=== PATIENT | female | born 1975 | race Caucasian/White ===

== ENCOUNTER 2023-04-02 01:24 | Day surgery (SDC) | payer OTHER, SELFPAY ==
[2023-03-23 11:55] VITALS: BMI 36.9
[2023-04-02 07:30] VITALS: BP 138/88; PULSE 107; RESP 18; TEMP 36.9; O2SAT 98; BMI 34.8
[2023-04-02 08:04] LABS: Glucose Point of Care 125 mg/dl (65-105)
[2023-04-02] MEDS: LACTATED RINGERS 1,000 ML 150 ML IV CONT (08:04)
--- NOTE | 2023-04-02 08:27 | PM.HPGS ---
History of Present Illness History of Present Illness Consent: Risks, benefits, and alternatives have been discussed and questions answered. Patient agrees to proceed with procedure. Chief complaint: neoplasm screening Narrative: Yvonne Holden is a 47 year old female Presents for screening colonoscopy. Patient's current weight appetite and bowel movements are normal. Patient denies abdominal pain she has had no bleeding. Family history noncontributory. Review of Systems Review of Systems: Review of systems noncontributory. [facility] Social History Social History Smoking status: Never smoker Alcohol intake: current Drinks per week: 1 Substance use type: does not use Living arrangements: with family Spiritual care concerns: No Meds Home Medications and Allergies Home Medications Medication Instructions Recorded Confirmed Type amitriptyline 10 mg tablet 10 mg PO DAILY 03/23/23 04/02/23 History calcium carbonate 200 mg calcium 200 mg PO BID PRN Indigestion 03/23/23 04/02/23 History (500 mg) chewable tablet (Tums) cetirizine 10 mg tablet (Zyrtec) 10 mg PO DAILY 03/23/23 04/02/23 History desogestrel-e.estradiol 0.15 1 tablet PO DAILY 03/23/23 04/02/23 History mg-0.02 mg(21)/e.estrad 0.01 mg(5) tablet (Kariva (28)) ibuprofen 600 mg tablet 600 mg PO Q6H PRN Indigestion 03/23/23 04/02/23 History levothyroxine 150 mcg tablet 150 mcg PO DAILY 03/23/23 04/02/23 History metformin 500 mg tablet,extended 500 mg PO DAILY 03/23/23 04/02/23 History release 24 hr omeprazole 40 mg capsule,delayed 40 mg PO DAILY PRN Indigestion 03/23/23 04/02/23 History release paroxetine HCl 40 mg tablet 40 mg PO DAILY 03/23/23 04/02/23 History triamcinolone acetonide 55 mcg 2 spray intranasal DAILY 03/23/23 04/02/23 History nasal spray aerosol (Nasacort Allergy) triamterene 37.5 1 tablet PO DAILY 03/23/23 04/02/23 History mg-hydrochlorothiazide 25 mg tablet Allergies Allergy/AdvReac Type Severity Reaction Status Date / Time ampicillin Allergy Rash Verified 04/02/23 07:41 Vital Signs Vital Signs - 24 hr 04/02/23 07:30 Temperature 98.4 F Pulse Rate 107 H Respiratory Rate 18 Blood Pressure 138/88 Pulse Oximetry 98 Oxygen Delivery Room Air Exam Narrative: Physical exam reveals patient to be alert. Vital signs stable. HEENT exam is unremarkable. Patient is anicteric. Lungs are clear to auscultation and percussion. Heart is without murmur or extra sounds. Abdomen bowel sounds are present soft nontender with no organomegaly. Digital external rectal exam is normal. Assessment and Plan Assessment and plan (1) Encounter for screening colonoscopy: Code(s): Z12.11 - Encounter for screening for malignant neoplasm of colon Status: Acute Assessment and Plan: Patient presents today for screening colonoscopy. She appears to be at average risk for colon polyps. Further recommendations will be given after endoscopy.
--- NOTE | 2023-04-02 08:41 | P.PNAN_ITS ---
Anes - Initial Pre Proc Eval Procedure: Operation Date: 04/02/23 09:00 Proposed Procedures p Screening Colonoscopy - Nitish Guerra MD Date/Time: 04/02/23 08:41 Surgeon: Nitish Guerra MD Pre Op Diagnosis: neoplasm screening Patient Data Age: 47 Gender: F Height: 1.7 m Weight: 100.9 kg Last Vital Signs Temp 98.4 F 04/02/23 07:30 Pulse 107 H 04/02/23 07:30 Resp 18 04/02/23 07:30 BP 138/88 04/02/23 07:30 Pulse Ox 98 04/02/23 07:30 O2 Del Method Room Air 04/02/23 07:30 Allergies Allergy/AdvReac Type Severity Reaction Status Date / Time ampicillin Allergy Rash Verified 04/02/23 07:41 Home Medications Medication Instructions Recorded Confirmed Type amitriptyline 10 mg tablet 10 mg PO DAILY 03/23/23 04/02/23 History calcium carbonate 200 mg calcium 200 mg PO BID PRN Indigestion 03/23/23 04/02/23 History (500 mg) chewable tablet (Tums) cetirizine 10 mg tablet (Zyrtec) 10 mg PO DAILY 03/23/23 04/02/23 History desogestrel-e.estradiol 0.15 1 tablet PO DAILY 03/23/23 04/02/23 History mg-0.02 mg(21)/e.estrad 0.01 mg(5) tablet (Kariva (28)) ibuprofen 600 mg tablet 600 mg PO Q6H PRN Indigestion 03/23/23 04/02/23 History levothyroxine 150 mcg tablet 150 mcg PO DAILY 03/23/23 04/02/23 History metformin 500 mg tablet,extended 500 mg PO DAILY 03/23/23 04/02/23 History release 24 hr omeprazole 40 mg capsule,delayed 40 mg PO DAILY PRN Indigestion 03/23/23 04/02/23 History release paroxetine HCl 40 mg tablet 40 mg PO DAILY 03/23/23 04/02/23 History triamcinolone acetonide 55 mcg 2 spray intranasal DAILY 03/23/23 04/02/23 History nasal spray aerosol (Nasacort Allergy) triamterene 37.5 1 tablet PO DAILY 03/23/23 04/02/23 History mg-hydrochlorothiazide 25 mg tablet Laboratory Tests 04/02/23 08:02 POC Capillary Glucose 125 H mg/dl (65-105) Patient hx anesthesia problems: none Family hx anesthesia problems: none Results Review: All pre-operative results and documents have been reviewed as part of the pre- operative evaluation. [facility] Social History Social History Smoking status: Never smoker Alcohol intake: current Drinks per week: 1 Substance use type: does not use Living arrangements: with family Spiritual care concerns: No Anes - Eval Final PreProcedure Day of Procedure 04/02/23 08:41 Patient weight: obese Heart: regular rate and rhythm Lungs: clear to auscultation Airway: Mallampati scale class II Neurological: alert and oriented Last oral intake: >/= 8 hours ASA classification: III Emergent: no Anesthetic plan: proceed Anesthesia type and monitoring: general GIVS and standard monitoring Results Review: All pre-operative results and documents have been reviewed as part of the pre- operative evaluation. Informed Consent: The patient's anesthetic plan and its attendant risks and benefits were discussed with the patient/family/POA. Questions were solicited and answers provided to the satisfaction of the patient/family/POA.
[2023-04-02] MEDS: SIMETHICONE ORAL SUSPENSION 20 MG/0.3 ML 30 ML BOTTLE 0.6 ML IRRIGATION (09:07)
[2023-04-02 09:13] VITALS: BP 99/57; PULSE 88; RESP 20; O2SAT 99
[2023-04-02 09:23] VITALS: BP 113/74; PULSE 78; RESP 18; O2SAT 100
[2023-04-02 09:33] VITALS: BP 112/74; PULSE 72; RESP 18; O2SAT 100
== END 2023-04-02 09:49 | disposition home or self-care (01) ==
PROVIDERS: PCP Family Medicine; Visit Provider Internal Medicine Gastroenterology
PROC: 0DJD8ZZ Inspection of Lower Intestinal Tract, Via Natural or Artificial Opening Endoscopic (ICD-10-PCS; CPT 45378; principal; 2023-04-02 09:00)
DX: Z12.11 Encounter for screening for malignant neoplasm of colon (principal); D12.2 Benign neoplasm of ascending colon; K63.5 Polyp of colon; Z79.84 Long term (current) use of oral hypoglycemic drugs; E66.9 Obesity, unspecified; Z68.34 Body mass index [BMI] 34.0-34.9, adult
CPT/HCPCS: 45385; 82948; 88305; J2704; J7120

== ENCOUNTER → 2023-06-10 08:43 | Outpatient (CLI) | payer OTHER, SELFPAY ==
--- NOTE | ~2023-06-10 | MR_ITS ---
MRI of the cervical spine Clinical History: Radiculopathy Technique: Axial T2-weighted and gradient images, and sagittal T1-weighted, T2-weighted, and STIR brooke ges were acquired. Findings: There is mild reversal normal cervical lordosis. There is 3 mm retrolisthesis of C5 over C6 . No suspicious bone marrow signal abnormality seen. At C2-C3, there is no disc bulge or herniation. No spinal canal stenosis, cord compression, or neural foraminal narrowing. At C3-C4, there is no disc bulge or herniation. No spinal canal stenosis, cord compression, or neural foraminal narrowing. At C4-C5, there is minimal disc osteophyte complex, with minimal flattening the ventral cord. Probabl e minimal bilateral neural foraminal narrowing present. At C5-C6, there is disc osteophyte complex with mild canal stenosis and mild flattening of the ventra l cord. There is moderate to severe bilateral neural foraminal narrowing. At C6-C7, there is minimal disc osteophyte complex. No tariq canal stenosis or cord compression. Bila teral neural foramina may be minimally narrowed. No abnormal signal seen in the spinal cord. Paravertebral soft tissues are unremarkable. Impression: Moderate degenerative spondylosis at C5-C6, with 3 mm retrolisthesis at this level. Additional mild to mild/moderate degenerative changes, as detailed above. Reviewed, dictated and finalized at [facility]. Impression: Moderate degenerative spondylosis at C5-C6, with 3 mm retrolisthesis at this le rick. Additional mild to mild/moderate degenerative changes, as detailed above.
== END ==
PROVIDERS: PCP Family Medicine; Visit Provider Family Medicine
DX: M47.22 Other spondylosis with radiculopathy, cervical region (principal)
CPT/HCPCS: 72141